=== PATIENT | female | born 1950 | race Caucasian/White ===

== ENCOUNTER → 2024-10-26 11:12 | Outpatient (REF) | payer MEDICARE, OTHER, SELFPAY | LOC: RAD 11:12 | PROVIDERS: ATTENDING PHYSICIAN Surgery Vascular Surgery; FAMILY PHYSICIAN Family Medicine | DX: I73.9 Peripheral vascular disease, unspecified (principal) | CPT/HCPCS: 93922; 93925 ==

== ENCOUNTER 2025-08-08 16:57 | Observation (INO) | payer MEDICARE, OTHER, SELFPAY ==
[2025-08-08] VITALS (7 sets, daily range): BP systolic 109–157; BP diastolic 56–98; BMI 26.1; BMI 28.8
[2025-08-08 13:27] LABS: Hematocrit 42.2 % (37.0-47.0); Hemoglobin 13.5 g/dL (12.0-16.0); Mean Corp Hgb Conc. 32.0 g/dL (33.0-37.0); Mean Corpuscular Volume 93.0 fL (81.0-99.0); Nucleated Red Blood Cells % 0 %; Platelet Count 236 10^3/uL (130-400); Red Cell Dist. Width 12.4 % (11.5-14.5)
[2025-08-08 13:44] LABS: ALT (SGPT) 24 U/L (0-35); AST (SGOT) 28 U/L (14-36); Albumin 4.6 g/dl (3.5-5.0); Alkaline Phosphatase 85 U/L (38-126); Blood Urea Nitrogen 26 mg/dl (7-17); Calcium 9.8 mg/dl (8.4-10.2); Carbon Dioxide 28 mmol/L (22-30); Chloride 103 mmol/L (98-107); Estimated Creatinine Clearance 43 ml/min; Glucose 196 mg/dl (70-99); Potassium 4.8 mmol/L (3.5-5.1); Sodium 138 mmol/L (135-145); Total Protein 7.5 g/dl (6.3-8.2); eGFR 58.39
[2025-08-08 13:54] LABS: Troponin I 0.017 ng/ml
--- NOTE | 2025-08-08 15:12 | ED.GENMED ---
History of Present Illness
General
Chief Complaint: Breathing Problem
Time Seen by Provider: 08/08/25 13:17
Nursing documentation reviewed up to this point in time: agreed with
History of Present Illness
History of Present Illness:
74-year-old female presents to the ER for evaluation of dyspnea on exertion which has been present and worsening over the previous 10 days. She denies orthopnea or paroxysmal nocturnal dyspnea. No peripheral edema. No fevers or chills. She has
no prior personal history of ACS nor has ever been seen by a sumo wrestler. She saw her PCP who has arranged for outpatient stress test tomorrow and echo to be done later this week. She has been eating and drinking without difficulty. No syncope
or trauma. She denies any change in urine output. Given progression of symptoms, patient did not feel comfortable waiting for further outpatient workup prompting visit to the ER today. No recent travel. No prior personal history of venous
thromboembolism
Past History
Past History
ED Past Medical History: Hypercholesterolemia and NIDDM
ED Past Surgical History: None
Social History
Tobacco: Non-smoker
Phy Exam
Physical Exam
Physical Exam:
Patient is awake, alert, appears in no acute distress, head is NCAT, PERRL, EOMI mucous membranes moist, conjunctiva pink, heart regular rate and rhythm without murmurs or ectopy, lungs are clear to auscultation without wheezes rales or rhonchi, no
JVD, abdomen is soft and nontender on palpation, extremities without edema, GCS is 15
Scores
Heart Failure Risk
Heart Failure Risk Score: Not Applicable
Course
Orders/Labs/Results
Orders:
Orders
08/08/25 13:01
Electrocardiogram (*1) Urgent
Reason for Study: Other
Other Reason for Exam: Respiratory Distress
08/08/25 13:10
Complete Blood Count/With Diff Urgent
Comprehensive Metabolic Panel Urgent
NT-proBNP Urgent
Troponin I Urgent
08/08/25 13:31
CR Chest - 2 Views Urgent
Comment:
Reason For Exam: dyspnea
08/08/25 15:15
Aspirin 325 mg PO NOW STA
Abnormal Lab Results
08/08/25
13:10
MCHC 32.0 L g/dL
(33.0-37.0)
BUN 26 H mg/dl
(7-17)
Glucose 196 H mg/dl
(70-99)
08/08/25 13:10
08/08/25 13:10
Very reassuring CBC. Kidney function preserved. Troponin just above normal. BNP within normal limits, no prior for compare
Vital Signs
Initial and Last Documented VS:
Initial Vital Signs
Temp Pulse Resp BP Pulse Ox
97.8 F 93 20 129/65 98
08/08/25 12:56 08/08/25 12:56 08/08/25 12:56 08/08/25 12:56 08/08/25 12:56
Last Documented Vital Signs
Temp Pulse Resp BP Pulse Ox
97.8 F 78 22 119/98 98
08/08/25 12:56 08/08/25 15:19 08/08/25 15:19 08/08/25 15:18 08/08/25 15:13
MDM/Problems Addressed
Differential Diagnosis Includes:
Differential diagnosis to consider but not limited to ACS with dyspnea as an anginal equivalent, CHF, pneumonia, cor pulmonale along with other etiologies considered
Chronic conditions affecting care:
Advanced age, type 2 diabetes, hyperlipidemia
*Radiology
Radiology exam reviewed: radiology read reviewed (No acute process, interstitial fibrosis, no lobar pneumonia seen)
*Pulse Oximetry
SaO2: 98
Oxygen Mode of Delivery: Room air
Patient hypoxic: no
*EKG
Interpreted by ED Provider?: Yes (I independently viewed and interpreted twelve-lead EKG showing sinus rhythm with first-degree AV block, rate 85, rightward axis, no ST elevation, this is a abnormal tracing without evidence for acute ischemia, no
prior for comparison)
*[employer] Interpretation
Rate: normal (I independently viewed and interpreted rhythm strip showing sinus rhythm with first-degree AV block)
*Critical Care Note
Total Time (30-74mins, 75-104mins- exclusive of procedures): Not Applicable
Update Note
Update Note:
Patient resting in bed, no acute distress while resting on the stretcher. I reviewed all test results with the patient and present at bedside. I discussed with him concern for dyspnea as an anginal equivalent and benefit for overnight
observation and further assessment of same. They agree with plan. I reviewed full patient presentation with the hospitalist who accepts patient for admission. Aspirin given
ED Attending Note
-
Portions of this chart may have been created with voice recognition software.� Occasional wrong word or��sound alike� substitutions may have occurred due to the inherent limitations of voice recognition software.
Discharge Plan
Departure
Patient Disposition: Admit
Date of Disposition: 08/08/25
Time of Disposition: 15:32
Presentation/result/management discussed w/ accepting MD/DO: Hospitalist
Discharge Problem:
DEL RIO (dyspnea on exertion)
Prescriptions:
No Action
atorvastatin [Lipitor] 40 mg Tablet
40 mg PO DAILY
Referrals:
Roberto Bee MD [Family Provider, Family Practice]
Interventions
Interventions:
*Risk Screen - Suicide Last Done: 08/08/25 12:56
*General Assessment Last Done: 08/08/25 13:26
*Neglect/Abuse Screening Last Done: 08/08/25 13:22
*ED- Fall Risk Assessment Last Done: 08/08/25 13:26
*ED COVID-19 Vaccine History Last Done: 08/08/25 13:26
*ED Influenza Vaccine History Last Done: 08/08/25 13:26
ED- Cardiac Assessment Last Done: 08/08/25 13:22
ED- Pulmonary Assessment Last Done: 08/08/25 13:22
Discharge Date and Time
Print Language: IRISH
--- NOTE | 2025-08-08 15:36 | HPS.HSE ---
Addendum entered and electronically signed by Emigdio Mcadams MD 08/08/25 20:25:
CT chest shows numerous bilateral small pulmonary nodule suggestive of metastatic disease. Check routine CT scan abdomen pelvis with IV contrast tomorrow. Oncology consulted.
Addendum entered and electronically signed by Emigdio Mcadams MD 08/08/25 16:45:
This is an addendum to the H&P written by Tanna Brewer on 08/08/2025. �Patient seen and examined independently with STATION INSTALLER AND REPAIRER.
74-year-old female past medical history of hypertension, hyperlipidemia, anxiety, diabetes, presenting with shortness of breath with minimal exertion dry cough for 10 days. �No fevers or chills. �No swelling of the legs or weight gain.
She saw her primary care physician who started her on aspirin and ordered echocardiogram and stress test which is supposed to occur tomorrow morning.
Vitals normal. �Labs unremarkable.
Troponin 0.017. �Cardiac BNP 159. �EKG shows sinus rhythm with first-degree AV block.
Chest x-ray shows fine reticular nodular opacity bilaterally which may relate to interstitial pneumonitis, atypical infection or interstitial fibrosis.
Patient with new onset dyspnea/dry cough likely secondary to interstitial pneumonitis versus atypical infection versus interstitial fibrosis. �Check CT chest with IV contrast and may potentially require antibiotics and/or steroids. �Check COVID.
Original Note:
Family Physician
-
Family Physician: Roberto Bee
Chief Complaint
-
cough and sob
History of Present Illness
74-year-old female presents to the ER for evaluation of dyspnea on exertion which has been present and worsening over the previous 10 days. patient also complained of non productive cough. she is drooling for past 10 days. She denies orthopnea or
paroxysmal nocturnal dyspnea. No peripheral edema. No fevers or chills. she stated sob improves with rest. Denied fever, chills, headache, dizzy or syncope. Patient denies abdominal pain, nausea, vomiting. Patient denies dysuria hematuria. She
lost 2 to 4 pounds in 1 week
She saw her PCP who has arranged for outpatient stress test tomorrow and echo to be done later this week.
Medical History
Past Medical History
Past Medical History: Reports Other
Additional Past Medical History:
Peripheral artery disease, NIDDM, hypertension, hyperlipidemia, MGUS
Past Surgical History: Reports None
Social History
Tobacco: Non-smoker
Alcohol: None
Drug: None
Personal:
Living: With Family
Family History
Family History: Not pertinent
Allergies / Home Medications
Allergies reflects when Allergies were last updated in [facility].
Home Medications with original date entered in [facility]
Allergy/Medication List:
Allergies
Allergy/AdvReac Type Severity Reaction Status Date / Time
No Known Allergies Allergy Verified 08/08/25 12:56
Home Medications
atorvastatin 40 mg tablet (Lipitor) 40 mg PO DAILY High Cholesterol 08/08/25
cholecalciferol (vitamin D3) 25 mcg (1,000 unit) tablet (Vitamin D3) 25 mcg PO DAILY Supplement 08/08/25
empagliflozin 25 mg tablet (Jardiance) 25 mg PO DAILY 08/08/25
fluoxetine 40 mg capsule 40 mg PO DAILY Mental Health/Anxiety 08/08/25
glipizide 10 mg tablet 10 mg PO DAILY Diabetes 08/08/25
lisinopril 40 mg tablet 40 mg PO DAILY Blood Pressure 08/08/25
Review of Systems
-
Constitutional: Reports No Symptoms
EENT: Reports No Symptoms
Respiratory: Reports Cough and Trouble Breathing
Cardiac: Reports No Symptoms
Abdomen/GI: Reports No Symptoms
: Reports No Symptoms
Musculoskeletal: Reports No Symptoms
Skin: Reports No Symptoms
Neurological: Reports No Symptoms
Endocrine: Reports No Symptoms
Hematologic/Lymphatic: Reports No Symptoms
Psych: Reports No Symptoms
Physical Exam
Vital Signs
Vital Signs
Temp Pulse Resp BP Pulse Ox
97.8 F 78 22 119/98 98
08/08/25 12:56 08/08/25 15:19 08/08/25 15:19 08/08/25 15:18 08/08/25 15:13
Physical Exam
General: Well Developed, Well Nourished and No Apparent Distress
HEENT: NormoCephalic, Moist mucous membranes and Atraumatic
Respiratory: Clear
Cardiac: S1/S2 and Regular Rhythm; No Murmur or Rub
GI: Soft, Non Tender, Non Distended and Normal Bowel Sounds; No Organomegaly
Rectal: Deferred by Provider
Musculoskeletal: No Clubbing, No Cyanosis and No Edema
Skin: No Rash
Neuro: AO x 3 and Nonfocal/grossly intact
Psych: Calm
Laboratory Results
-
08/08/25 13:10
08/08/25 13:10
Laboratory Results
Total Bilirubin 0.4 mg/dl (0.2-1.3) 08/08/25 13:10
AST 28 U/L (14-36) 08/08/25 13:10
ALT 24 U/L (0-35) 08/08/25 13:10
Alkaline Phosphatase 85 U/L (38-126) 08/08/25 13:10
Troponin I 0.017 ng/ml 08/08/25 13:10
Data Reviewed
-
Diagnostic Radiology: Report Reviewed by me
Lab Data: Labs Reviewed by me
Impression/Plan
-
#DEL RIO unclear cause
-trop 0.017
-chest x ray with Fine reticular nodular opacity is seen bilaterally, which may be related to interstitial pneumonitis, atypical infection, or interstitial fibrosis.
2. No evidence of lobar pneumonia or pleural effusion.
-EKG with Sinus Rhythm with 1se degree AV block
-will obtain CT of chest
-oxygenating very well on RA
# Type 2 diabetes
-jardiance and glipizide continued
- Sliding scale
- CHO diet
# Anxiety
- Paroxetine continued
# Essential hypertension
# Hyperlipidemia
- Lisinopril and statin continued
#DVT prophylaxis
- Lovenox
# CODE STATUS
- Full code
[2025-08-08] MEDS: ASPIRIN 325 MG PO (16:33)
[2025-08-08 17:03] LABS: COVID-19 Antigen Negative (Negative)
--- NOTE | 2025-08-08 18:46 | PTCARENOTE ---
pt admitted to 319-2 end of shift, spouse at bedside. AOx3 anxious. MS heart sounds regular, LCTA b/l on RA, denies SOB or CP. abd round nt +BS x4. cont b&B x2 assist. weak PP no edema b/l
[2025-08-08] MEDS: LOVENOX 40 MG SC (19:48)
--- NOTE | 2025-08-08 20:31 | W.PN.UPDATE ---
Update Note
Progress Note Update
CT with Numerous bilateral small pulmonary nodules suggestive of metastatic disease. Clinical and laboratory correlation recommended. Inflammation/infection unlikely.If the patient has emphysema, patient should be assessed for an annual low dose
lung cancer CT program, as pulmonary emphysema is an independent risk factor for lung cance
will obtain CT abdomen pelvis
oncology consulted.
[2025-08-08 21:25] LABS: Glucose - Point of Care 154 mg/dl (70-99)
[2025-08-08] MEDS: MELATONIN 5 MG PO (22:10)
[2025-08-09 07:17] VITALS: BP 128/59
[2025-08-09 07:50] LABS: Glucose - Point of Care 124 mg/dl (70-99)
[2025-08-09] MEDS: ZESTRIL 40 MG PO (08:03)
[2025-08-09] MEDS: FARXIGA 10 MG PO (08:04)
[2025-08-09] MEDS: GLUCOTROL 10 MG PO (08:05)
[2025-08-09] MEDS: VITAMIN D3 (cholecalciferol) 25 MCG PO (08:06)
[2025-08-09] MEDS: LIPITOR 40 MG PO (08:06)
[2025-08-09] MEDS: PROZAC 40 MG PO (08:07)
--- NOTE | 2025-08-09 10:25 | CON.ONC ---
Consultation
-
Date Consultation Requested: 08/08/25
Date Consultation Performed: 08/09/25
Requesting Provider: YUDI Pfeiffer
Performing Provider: Trini Gonsales MD
Reason for Consultation: lung nodules
Impression
Impression
dyspnea on exertion
Numerous bilateral small pulmonary nodules on CT chest
Plan
Plan
CT images reviewed personally - very small lung nodules alone are unlikely to explain her dyspnea
CT A/P has been ordered - if unremarkable, she needs pulmonary evaluation re: symptoms and CT findings
No further oncologic w/u at this time
Can f/u with me as outpatient if malignancy is identified
Patient History
History of Present Illness
This is a 74 yo F who presented to the ER yesterday with 10day h/o DEL RIO. Her PMD had arranged outpatient echo, not yet done. No cough, fever, sputum production, viral symptoms, chest pain, nausea, vomiting, diarrhea, rash, sore throat. She notes
balance issues related to diabetic neuropathy.
CXR was noted for reticular nodular opacity is seen bilaterally. CT Chest showed numerous bilateral small pulmonary nodules suggestive of metastatic disease. Clinical and laboratory correlation recommended. Inflammation/infection unlikely.
Not needing O2, she wants to go home.
She's a never smoker, though had 2nd hand smoke exposure in childhood - mom of lung cancer. No recent travel, no sick contacts, no birds as pets, no wood stove.
She's due for colonoscopy, recently had mammo.
PMD is [facility].
Past-Medical/Surgical History
PMH/PSH - as above. No surgeries. HTN, HLD
SH - non smoker,
FH - sister w/ colon cancer, mother had lung cancer
Patient Medication
�Medication �Instructions �Recorded �Confirmed �Last Taken �Type
atorvastatin 40 mg tablet (Lipitor) 40 mg PO DAILY High Cholesterol 08/08/25 08/08/25 08/08/25 History
cholecalciferol (vitamin D3) 25 25 mcg PO DAILY Supplement 08/08/25 08/08/25 08/08/25 History
mcg (1,000 unit) tablet (Vitamin
D3)
empagliflozin 25 mg tablet 25 mg PO DAILY 08/08/25 08/08/25 08/08/25 History
(Jardiance)
fluoxetine 40 mg capsule 40 mg PO DAILY Mental 08/08/25 08/08/25 08/08/25 History
Health/Anxiety
glipizide 10 mg tablet 10 mg PO DAILY Diabetes 08/08/25 08/08/25 08/08/25 History
lisinopril 40 mg tablet 40 mg PO DAILY Blood Pressure 08/08/25 08/08/25 08/08/25 History
Active Medications
Generic Name Dose Route Start Last Admin
Trade Name Freq PRN Reason Stop Dose Admin
Acetaminophen 650 mg 08/08/25 18:35
Acetaminophen 325 Mg Tablet PO 09/05/25 18:34
Q4HPRN PRN
mild pain/ATKINS/temp> 100.4F
Atorvastatin Calcium 40 mg 08/09/25 08:00 08/09/25 08:06
Atorvastatin (Lipitor) 40 Mg Tablet PO 09/06/25 07:59 40 mg
DAILY ARTHUR Administration
Bisacodyl 10 mg 08/08/25 18:35
Bisacodyl 10 Mg Rectal Suppository RECTAL 09/05/25 18:34
[id number] PRN
constipation
Cholecalciferol 25 mcg 08/09/25 08:00 08/09/25 08:06
Cholecalciferol (Vitamin D3) 25 Mcg Tablet (1,000 Units) PO 09/06/25 07:59 25 mcg
DAILY ARTHUR Administration
Dapagliflozin 10 mg 08/09/25 08:00 08/09/25 08:04
Dapagliflozin (Farxiga) 10 Mg Tablet PO 09/06/25 07:59 10 mg
DAILY ARTHUR Administration
Dextrose 12.5 grams 08/08/25 18:35
Dextrose 50% (0.5 Grams/Ml) 50 Ml Syringe IV 09/05/25 18:34
[id number] PRN
hypoglycemia
Protocol
Enoxaparin Sodium 40 mg 08/08/25 18:35 08/08/25 19:48
Enoxaparin Sodium 40 Mg/0.4 Ml Syringe SC 09/05/25 18:34 40 mg
QPM ARTHUR Administration
Fluoxetine HCl 40 mg 08/09/25 08:00 08/09/25 08:07
Fluoxetine 20 Mg Capsule PO 09/06/25 07:59 40 mg
DAILY ARTHUR Administration
Glipizide 10 mg 08/09/25 08:00 08/09/25 08:05
Glipizide 10 Mg Regular Release Tablet PO 09/06/25 07:59 10 mg
DAILY ARTHUR Administration
Glucagon 1 mg 08/08/25 18:35
Glucagon 1 Mg Vial IM 09/05/25 18:34
PRN PRN
hypoglycemia
Protocol
Insulin Aspart 0 units 08/08/25 18:35 08/09/25 08:02
Insulin Aspart Low Resistance 300 Units/3 Ml Pen.Injctr SC 09/05/25 18:34 Not Given
AC ARTHUR
Protocol
Iohexol 0 ml 08/09/25 10:30
Iohexol (240 Mg/Ml) 50 Ml Cat Scan PO 08/09/25 10:31
ONCE ONE
Protocol
Lisinopril 40 mg 08/09/25 08:00 08/09/25 08:03
Lisinopril 20 Mg Tablet PO 09/06/25 07:59 40 mg
DAILY ARTUHR Administration
Polyethylene Glycol 17 grams 08/08/25 18:35
Polyethylene Glycol Powder 17 Grams Packet PO 09/05/25 18:34
DAILYPRN PRN
constipation
Senna/Docusate Sodium 1 tablet 08/08/25 18:35
Docusate W/Senna (Nathalie-Colace) Tablet PO 09/05/25 18:34
BIDPRN PRN
constipation
Sodium Chloride 0 flush 08/08/25 19:00
Sodium Chloride 0.9% (Flush) Syringe IV 09/05/25 18:59
PER PROTOCOL ARTHUR
Review of Systems
-
All Other Systems: Not reviewed unless documented
Physical Exam
-
General: Well Developed, Well Nourished and No Apparent Distress
HEENT: Moist Mucous Membranes; Negative Jaundice
Cardiology: Normal Sinus Rhythm
Pulmonary: Other (scattered faint rales)
GI: Soft; Negative Distended or Tense
Musculoskeletal: No Clubbing, No Cyanosis and No Edema
Neurology: Non Focal, No Lateralizing Symptoms and No Word Finding Difficulty
Skin: Warm and Dry
Hematologic / Lymphatic: No Lymphadenopathy
Psych: Calm and Intact Judgement/Insight
Labs
Lab Results
WBC 7.6 10^3/uL (4.8-10.8) 08/08/25 13:10
RBC 4.54 10^6/uL (4.20-5.40) 08/08/25 13:10
Hgb 13.5 g/dL (12.0-16.0) 08/08/25 13:10
Hct 42.2 % (37.0-47.0) 08/08/25 13:10
MCV 93.0 fL (81.0-99.0) 08/08/25 13:10
MCH 29.7 pg (27.0-31.0) 08/08/25 13:10
MCHC 32.0 g/dL (33.0-37.0) L 08/08/25 13:10
RDW 12.4 % (11.5-14.5) 08/08/25 13:10
Plt Count 236 10^3/uL (130-400) 08/08/25 13:10
MPV 9.5 fL (7.4-10.4) 08/08/25 13:10
Abs Immat Gran (auto) 0.0 10^3/uL (0-0.05) 08/08/25 13:10
Absolute Neuts (auto) 5.0 10^3/uL (1.4-6.5) 08/08/25 13:10
Absolute Lymphs (auto) 1.8 10^3/uL (1.2-3.4) 08/08/25 13:10
Absolute Monos (auto) 0.6 10^3/uL (0.1-0.6) 08/08/25 13:10
Absolute Eos (auto) 0.1 10^3/uL (0-0.7) 08/08/25 13:10
Absolute Basos (auto) 0.0 10^3/uL (0-0.2) 08/08/25 13:10
Immature Gran % 0.3 % (0-0.5) 08/08/25 13:10
Neutrophils % 66.5 % (42.2-75.2) 08/08/25 13:10
Lymphocytes % 23.6 % (20.5-51.1) 08/08/25 13:10
Monocytes % 8.2 % (1.7-9.3) 08/08/25 13:10
Eosinophils % 0.9 % (0-6) 08/08/25 13:10
Basophils % 0.5 % (0-2) 08/08/25 13:10
Creatinine 1.0 mg/dL (0.6-1.0) 08/08/25 13:10
Vital Signs
Vital Signs
Temp Pulse Resp BP Pulse Ox
97.4 F 73 17 128/59 99
08/09/25 07:17 08/09/25 07:17 08/09/25 07:17 08/09/25 07:17 08/09/25 07:17
[2025-08-09] MEDS: OMNIPAQUE 50 ML PO (10:28)
[2025-08-09 10:32] LABS: Glycohemoglobin (HgbA1c) 7.5 % (4.0-5.9)
--- NOTE | 2025-08-09 11:47 | W.PN.HOSP.TC ---
Today's Communication/Plan
-
CT A/P
ECHO
Assessment / Plan
Assessment / Plan
74 y/o female with SOB
CT Chest- Numerous bilateral small pulmonary nodules suggestive of metastatic disease. Clinical and laboratory correlation recommended. Inflammation/infection unlikely.
EKG- SR with 1st degree AVB
CVS: S1-S2 normal
Chest: CTA B/L
Abdomen: Soft, NT , Bowel sounds present
Extremities: No edema
# SOB
Bilateral pulmonary nodules
Agree with CT of the abdomen and pelvis
Oncology eval noted
Check ECHO
# Hypertension-continue lisinopril
# Diabetes-hemoglobin A1c-7.5
Continue glipizide, Jardiance, Accu-Cheks and sliding scale coverage
# Hyperlipidemia-continue statin
# Depression-continue fluoxetine
# History of MGUS
# DVT prophylaxis-Lovenox
# Full code
D/W RN
D/W at bed side
Patient states that she is leaving no marijuana today. Discussed that she does not have a diagnosis and were not sure if we get a diagnosis right away before she leaves. She is also aware that outpatient workup will take more time. Also encourage
up to walk around the unit to see if she is getting short of breath and symptomatic.
Part of this note was created using voice recognition system. Occasional wrong word or��sound alike� substitutions may have inadvertently occurred due to the inherent limitations of voice recognition software. If noted kindly bring it to my
attention for correction.
Anticipated Discharge: 24 - 48 hours
Subjective/Interval History
-
Date of Service: August 09, 2025
Objective Data
-
Vital Signs:
Vital Signs
Temp Pulse Resp BP Pulse Ox
97.4 F 73 17 128/59 99
08/09/25 07:17 08/09/25 07:17 08/09/25 07:17 08/09/25 07:17 08/09/25 07:17
[2025-08-09 11:49] LABS: Glucose - Point of Care 92 mg/dl (70-99)
--- NOTE | 2025-08-09 13:20 | CM ---
Patient seen at bedside with
STALLWORTH form explained & signed. In chart
IA completed
Await CT scan
Lives in multi story home with , 1 ALIA, has 2 stair glides to 2nd floor, powder room 1st floor
PLOF: independent uses cane outside home, walker for longer distances
DME: Cane, walker, CPAP (reported does not use)
Denies VN/rehab
requested information on private caregivers for future, given resources
PCP: Roberto Bee
Pharmacy: [address]
PLAN: Home, no needs anticipated
to transport
--- NOTE | 2025-08-09 13:45 | PTCARENOTE ---
pt and spouse both anxious, pressing call hammond frequently asking to leave. Reminded CT results are pending. Pt states she is leaving tonight, informed without D/C order AMA would be required- pt is accepting of AMA and is adamant she is leaving
tonight
[2025-08-09 15:19] VITALS: BP 131/78
--- NOTE | 2025-08-09 16:40 | PTCARENOTE ---
pt returned from echo, got off stretcher and immediately asked for discharge papers. This nurse went to d/w attending, pt dressed and in hallway, spouse pressing call hammond, asking what to leave. reviewed AMA, pt agreeable to AMA communicating with
attending for possible d/c
[2025-08-09 16:50] LABS: Glucose - Point of Care 165 mg/dl (70-99)
[2025-08-09 18:00] VITALS: O2SAT 95; O2SAT 96
--- NOTE | 2025-08-09 19:25 | W.PN.UPDATE ---
Update Note
Progress Note Update
Notified by nursing earlier today that patient wants to leave AGAINST MEDICAL ADVICE as she does not want to stay any longer in the hospital. She had also indicated this to me during my visit this morning but I was able to convince her to get a CAT
scan. Patient had a home oxygen evaluation and her ambulatory pulse ox was 96% with exertion. She states that she feels well enough to get further workup done as outpatient. Discussed with the patient about CAT scan findings and the fact that she
needs to follow-up with the merchandise flow team member. We can get that done here, she might need additional testing such as a bronchoscopy or other blood testing based on what pulmonology evaluation. I discussed that outpatient appointment may take several
weeks and also further testing may also take several weeks and her disease could progress in the meantime. Patient stated that even if she had to re- live The last 24 hours, she would still do not want to be in the hospital and would rather be
home. She thinks that she will come back if she were to feel bad again.
She is aware that this would require an ER wait and admission through the ER.
I have printed out reports of CAT scan, echo for her to take with her.
I will also do a trial course of antibiotics and I did mention to the patient as well as that there is no guarantee that this will work.
Patient was dressed and determined to leave AGAINST MEDICAL ADVICE. At this point I will do a patient requested for discharge with papers and Meds.
She is clinically stable at this point and prefers further work up as outpatient.
Total time spent for discharge over 30 min
--- NOTE | 2025-08-09 19:32 | W.DS.TRANS ---
Addendum entered and electronically signed by Sunny Monreal MD 08/10/25 08:37:
Dictation- [id number]
Original Note:
DC Summary - Special Duty Nurse
-
Discharge Instructions:
Discharge Diagnosis/Procedures Bilateral pulmonary nodules
Hypertension
Diabetes
Hyperlipidemia
Depression
History of MGUS
Diet As tolerated
Activity As tolerated,No strenuous activity
Driving Restrictions As prior to admission
Instructions:
Stand-Alone Forms:
Changes to Home Medications: Yes
Discharge Medications:
DC Medications w/original date entered in [facility]
atorvastatin 40 mg tablet (Lipitor) 40 mg PO DAILY High Cholesterol 08/08/25
cholecalciferol (vitamin D3) 25 mcg (1,000 unit) tablet (Vitamin D3) 25 mcg PO DAILY Supplement 08/08/25
empagliflozin 25 mg tablet (Jardiance) 25 mg PO DAILY Diabetes 08/08/25
fluoxetine 40 mg capsule 40 mg PO DAILY depression/anxiety 08/08/25
glipizide 10 mg tablet 10 mg PO DAILY Diabetes 08/08/25
lisinopril 40 mg tablet 40 mg PO DAILY Blood Pressure 08/08/25
doxycycline hyclate 100 mg capsule 100 mg PO Q12 Infection #14 caps 08/09/25
Home Medication Changes
Doxy new
Pending Results: No
[2025-08-09 20:06] VITALS: BP 99/51
--- NOTE | 2025-08-09 20:06 | PTCARENOTE ---
Patient being discharged to home. Packet discussed with patient and her . Prescription for abx sent to pharmacy. Vitals obtained prior to leaving. IV was removed. All belongings sent with patient. Transported via wheelchair and accompanied by
.
== END 2025-08-09 20:09 | disposition home or self-care (01) ==
LOC: 3 WEST ACU 16:57
PROVIDERS: Emergency Medicine; Registered Nurse; ADMITTING PHYSICIAN Hospitalist; ATTENDING PHYSICIAN Hospitalist; EMERGENCY PHYSICIAN Emergency Medicine; FAMILY PHYSICIAN Family Medicine; OTHER PHYSICIAN Internal Medicine Hematology & Oncology
DX: R91.8 Other nonspecific abnormal finding of lung field (principal); R06.02 Shortness of breath; E78.00 Pure hypercholesterolemia, unspecified; E11.40 Type 2 diabetes mellitus with diabetic neuropathy, unspecified; E11.51 Type 2 diabetes mellitus with diabetic peripheral angiopathy without gangrene; R06.03 Acute respiratory distress; I44.0 Atrioventricular block, first degree; R06.09 Other forms of dyspnea; I25.10 Atherosclerotic heart disease of native coronary artery without angina pectoris; I08.0 Rheumatic disorders of both mitral and aortic valves; I70.0 Atherosclerosis of aorta; F32.A Depression, unspecified; I10 Essential (primary) hypertension; F41.9 Anxiety disorder, unspecified; R05.9 Cough, unspecified; Z79.899 Other long term (current) drug therapy; Z79.84 Long term (current) use of oral hypoglycemic drugs; Z77.22 Contact with and (suspected) exposure to environmental tobacco smoke (acute) (chronic); Z80.1 Family history of malignant neoplasm of trachea, bronchus and lung; Z80.0 Family history of malignant neoplasm of digestive organs; Z11.52 Encounter for screening for COVID-19
CPT/HCPCS: 71046; 71260; 74177; 80053; 82962; 83036; 83880; 84484; 85025; 87811; 93005; 93306; 93356; 99285; G0378; Q9967

== ENCOUNTER 2025-08-14 20:39 | Observation (INO) | payer MEDICARE, OTHER, SELFPAY ==
[2025-08-14 14:33] VITALS: BP 128/59
--- NOTE | 2025-08-14 15:25 | ED.GENMED ---
History of Present Illness
<Dwaine Forbes PA-C - Last Filed: 08/14/25 17:57>
General
Chief Complaint: Breathing Problem
Source: patient
Exam Limitations: none
Time Seen by Provider: 08/14/25 15:00
History of Present Illness
History of Present Illness:
74-year-old female presents with worsening shortness of breath. She was here in the hospital couple days ago and left. She was found to have multiple pulmonary nodules that were either infectious in nature or metastatic in nature. This was
followed by CT of her abdomen which confirmed those findings. She was due to see pulmonology but side to leave prior to receiving full course of treatment and diagnostic workup. She states over the weekend despite being on doxycycline her symptoms
have worsened. She notes fatigue. She notes a couple pound weight loss. She notes decreased appetite.
Past History
<PIPPA Su Last Filed: 08/14/25 17:57>
Past History
ED Past Medical History: Hypercholesterolemia and NIDDM
ED Past Surgical History: None
Social History
Tobacco: Non-smoker
Phy Exam
<PIPPA Su Last Filed: 08/14/25 17:57>
Physical Exam
Physical Exam:
General: Well developed female
HEENT: Normal cephalic atraumatic
Heart: Regular rate and rhythm lungs: Subtle wheeze on inspiration
Abdomen is soft nontender
Extremities: No cyanosis or edema
Scores
<PIPPA Su Last Filed: 08/14/25 17:57>
Heart Failure Risk
Heart Failure Risk Score: Not Applicable
Course
<PIPPA Su Last Filed: 08/14/25 17:57>
Orders/Labs/Results
Orders:
Orders
08/14/25 14:32
Electrocardiogram (*1) Urgent
Reason for Study: Shortness of Breath
EKG- Treatment ONCE
08/14/25 15:23
CR Chest - 2 Views Urgent
Comment:
Reason For Exam: sob
08/14/25 15:28
Complete Blood Count/With Diff Urgent
Comprehensive Metabolic Panel Urgent
NT-proBNP Urgent
Troponin I Urgent
08/14/25 20:10
Admit/Transfer Patient As Directed
Co-Sign Provider:
Level of Care: Observation services
Assign to:: Medical/Surgical
Physician / Group: Philip Kahn
Diagnosis: exertional dyspnea
PRN Pain Medication Management As Directed
May give lesser potent ordered pain med per pt: Yes
preference::
Protocol:: Medication orders for pain may be administered in a
manner that supports deferring to patient preference
when the pt is:
- Requesting an ordered lesser potent pain medication.
Least to most potent pain medications are defined
as: acetaminophen < NSAID < tramadol < opioids
(morphine, oxycodone, hydromorphone).
- Requesting a lesser dose of the same medication IF
ORDERED.
- Requesting a less intrusive route of administration
if both routes are prescribed by the provider (PO <
IV).
08/14/25 20:12
Code Status As Directed
Resuscitation Status: Full Code
Abnormal Lab Results
08/14/25
15:28
Absolute Monos (auto) 0.8 H 10^3/uL
(0.1-0.6)
Monocytes % 10.7 H %
(1.7-9.3)
Sodium 134 L mmol/L
(135-145)
BUN 23 H mg/dl
(7-17)
Glucose 135 H mg/dl
(70-99)
08/14/25 15:28
08/14/25 15:28
Vital Signs
Initial and Last Documented VS:
Initial Vital Signs
Temp Pulse Resp BP Pulse Ox
98.5 F 88 16 128/59 98
08/14/25 14:33 08/14/25 14:33 08/14/25 14:33 08/14/25 14:33 08/14/25 14:33
Last Documented Vital Signs
Temp Pulse Resp BP Pulse Ox
98.6 F 77 19 145/67 97
08/14/25 15:38 08/14/25 19:32 08/14/25 19:32 08/14/25 18:50 08/14/25 19:35
<Marvin Ness MD - Last Filed: 08/14/25 21:05>
Orders/Labs/Results
Orders:
Orders
08/14/25 14:32
Electrocardiogram (*1) Urgent
Reason for Study: Shortness of Breath
EKG- Treatment ONCE
08/14/25 15:23
CR Chest - 2 Views Urgent
Comment:
Reason For Exam: sob
08/14/25 15:28
Complete Blood Count/With Diff Urgent
Comprehensive Metabolic Panel Urgent
NT-proBNP Urgent
Troponin I Urgent
08/14/25 20:10
Admit/Transfer Patient As Directed
Co-Sign Provider:
Level of Care: Observation services
Assign to:: Medical/Surgical
Physician / Group: Philip Kahn
Diagnosis: exertional dyspnea
PRN Pain Medication Management As Directed
May give lesser potent ordered pain med per pt: Yes
preference::
Protocol:: Medication orders for pain may be administered in a
manner that supports deferring to patient preference
when the pt is:
- Requesting an ordered lesser potent pain medication.
Least to most potent pain medications are defined
as: acetaminophen < NSAID < tramadol < opioids
(morphine, oxycodone, hydromorphone).
- Requesting a lesser dose of the same medication IF
ORDERED.
- Requesting a less intrusive route of administration
if both routes are prescribed by the provider (PO <
IV).
08/14/25 20:12
Code Status As Directed
Resuscitation Status: Full Code
Abnormal Lab Results
08/14/25
15:28
Absolute Monos (auto) 0.8 H 10^3/uL
(0.1-0.6)
Monocytes % 10.7 H %
(1.7-9.3)
Sodium 134 L mmol/L
(135-145)
BUN 23 H mg/dl
(7-17)
Glucose 135 H mg/dl
(70-99)
08/14/25 15:28
08/14/25 15:28
Vital Signs
Initial and Last Documented VS:
Initial Vital Signs
Temp Pulse Resp BP Pulse Ox
98.5 F 88 16 128/59 98
08/14/25 14:33 08/14/25 14:33 08/14/25 14:33 08/14/25 14:33 08/14/25 14:33
Last Documented Vital Signs
Temp Pulse Resp BP Pulse Ox
98.6 F 77 19 145/67 97
08/14/25 15:38 08/14/25 19:32 08/14/25 19:32 08/14/25 18:50 08/14/25 19:35
Magedlt;Dwaine Forbes PA-C - Last Filed: 08/14/25 17:57>
MDM/Problems Addressed
Differential Diagnosis Includes:
Patient here with more shortness of breath and fatigue. Recent hospital visit noted. I reviewed prior CT scans. Will chest x-ray today. EKG today shows sinus rhythm. BNP and troponin pending as well
<Dwaine Forbes PA-C - Last Filed: 08/14/25 17:57>
*Pulse Oximetry
SaO2: 98
Oxygen Mode of Delivery: Room air
Patient hypoxic: no
*Critical Care Note
Total Time (30-74mins, 75-104mins- exclusive of procedures): Not Applicable
<Dwaine Forbes PA-C - Last Filed: 08/14/25 17:57>
Update Note
Update Note:
Patient reevaluated. She ambulated and became short of breath with minimal ambulation. Chest x-ray personally visualized and without acute finding. Labs reviewed with no significant change. Given patient's symptomatic dyspnea and shortness of
breath we will decide to keep for further evaluation. Discussed with ED attending.
ED Attending Note
<Dwaine Forbes PA-C - Last Filed: 08/14/25 17:57>
-
Portions of this chart may have been created with voice recognition software.� Occasional wrong word or��sound alike� substitutions may have occurred due to the inherent limitations of voice recognition software.
<Marvin Ness MD - Last Filed: 08/14/25 21:05>
ED Attending Note
Patient seen and examined by attending physician: Yes
I performed the substantive portion of visit, reviewed & personally made and approve the management plan that is documented in note by myself or MELLY.: Yes
ED Attending Note:
I have seen and evaluated the patient with a [id number] encounter. I have spoken to the [MELLY] and involved in the medical history, the physical exam, medical decision making.
Evaluation and management service: agree unless noted differently below.
Results interpretation: agree unless noted differently below.
Patient is a 74-year-old female presenting to the emergency room with worsening shortness of breath. Per chart patient was admitted for the same signs and multiple pulmonary nodules. She ultimately left AMA. She is presenting back that symptoms
have worsened despite being on antibiotics. On my evaluation patient is resting comfortably. She does have intermittent wheezing though she is not in any respiratory distress. Differential consists of malignancy versus infection. Blood work
obtained which was unremarkable. Chest x-ray without any obvious infiltrate. Upon ambulation patient with significant shortness of breath. Patient unsafe to be discharged home given the degree of dyspnea. Discussed with hospitalist who excepted
patient to their service.
Discharge Plan
Departure
Patient Disposition: Admit
Date of Disposition: 08/14/25
Time of Disposition: 17:56
Presentation/result/management discussed w/ accepting MD/DO: Hospitalist
Patient with high blood pressure during this ER visit?: No
Discharge Problem:
DEL RIO (dyspnea on exertion)
Interventions
Interventions:
*Risk Screen - Suicide Last Done: 08/14/25 14:34
*General Assessment Last Done: 08/14/25 15:38
*Neglect/Abuse Screening Last Done: 08/14/25 14:34
*ED- Fall Risk Assessment Last Done: 08/14/25 15:38
*ED COVID-19 Vaccine History Last Done: 08/14/25 15:38
*ED Influenza Vaccine History Last Done: 08/14/25 15:38
ED- Cardiac Assessment Last Done: 08/14/25 19:35
ED- Pulmonary Assessment Last Done: 08/14/25 19:35
[2025-08-14 15:35] VITALS: BMI 25.1
[2025-08-14 15:38] VITALS: BP 136/81
[2025-08-14 15:47] LABS: Hematocrit 38.2 % (37.0-47.0); Hemoglobin 12.7 g/dL (12.0-16.0); Mean Corp Hgb Conc. 33.2 g/dL (33.0-37.0); Mean Corpuscular Volume 88.4 fL (81.0-99.0); Nucleated Red Blood Cells % 0 %; Platelet Count 226 10^3/uL (130-400); Red Cell Dist. Width 12.4 % (11.5-14.5)
[2025-08-14 15:59] LABS: ALT (SGPT) 24 U/L (0-35); AST (SGOT) 28 U/L (14-36); Albumin 4.1 g/dl (3.5-5.0); Alkaline Phosphatase 77 U/L (38-126); Blood Urea Nitrogen 23 mg/dl (7-17); Calcium 9.7 mg/dl (8.4-10.2); Carbon Dioxide 26 mmol/L (22-30); Chloride 104 mmol/L (98-107); Estimated Creatinine Clearance 46 ml/min; Glucose 135 mg/dl (70-99); Potassium 4.3 mmol/L (3.5-5.1); Sodium 134 mmol/L (135-145); Total Protein 7.2 g/dl (6.3-8.2); eGFR > 60.00
[2025-08-14 16:09] LABS: Troponin I 0.018 ng/ml
--- NOTE | 2025-08-14 18:46 | EDRN ---
this RN entered the pts room and found the pt sitting on the side of the bed with her on bicycle fitter, and Sp02 monitor on with BP cuff off, the pt is tearful and does not want to stay but expresses that she understands that she needs to
stay, at the bedside offering support, VS WNL, no c/o chest pain, no c/o SOB, awaiting for hospitalist to see the pt
[2025-08-14 18:50] VITALS: BP 145/67
--- NOTE | 2025-08-14 19:25 | HPS.HSE ---
Family Physician
-
Family Physician: Roberto Bee
Chief Complaint
-
shortness of breath
History of Present Illness
Patient is a 74-year-old female with past medical history significant for NIDDM, hypertension, hyperlipidemia, anxiety and peripheral artery disease who presented to [facility] ED for evaluation of worsening shortness of breath. [facility]. Patient with recent hospitalization 08/08/2025-08/10/[address] showed that, she has numerous medium sized, round, solid, noncalcified bilateral pulmonary nodules, suggestive of metastatic disease, inflammation or
infection unlikely but possible. Plan was to have patient workup done in patient but patient elected to leave AMA despite workup not completed. Since discharge patient has had increased exertional dyspnea and increased weakness. Spouse reports
dyspnea today was at rest when patient requested to go to hospital for evaluation via EMS. Patient reports she was able to schedule Pulmonary follow up for this Friday08/16/[address] Ricardo. Denies any fever, chills, cough, chest pain,
nausea, vomiting, constipation, diarrhea or urinary symptoms.
Medical History
Past Medical History
Past Medical History: Reports Other
Additional Past Medical History:
NIDDM
hypertension
hyperlipidemia
anxiety
peripheral artery disease
MGUS
Past Surgical History: Reports None
Social History
Tobacco: Non-smoker
Alcohol: None
Drug: None
Personal:
Living: With Family
Employment: Retired
Family History
Family History: Other (Mother: Lung cancer, CAD; Sister: colon cancer; Daughter: breast cancer )
Allergies / Home Medications
Allergies reflects when Allergies were last updated in [facility].
Home Medications with original date entered in [facility]
Allergy/Medication List:
Allergies
Allergy/AdvReac Type Severity Reaction Status Date / Time
No Known Allergies Allergy Verified 08/08/25 12:56
Home Medications
atorvastatin 40 mg tablet (Lipitor) 40 mg PO DAILY High Cholesterol 08/08/25
empagliflozin 25 mg tablet (Jardiance) 25 mg PO DAILY Diabetes 08/08/25
fluoxetine 40 mg capsule 40 mg PO DAILY depression/anxiety 08/08/25
glipizide 10 mg tablet 10 mg PO DAILY Diabetes 08/08/25
lisinopril 40 mg tablet 40 mg PO DAILY Blood Pressure 08/08/25
doxycycline hyclate 100 mg capsule 100 mg PO Q12 Infection #14 caps 08/09/25
cholecalciferol (vitamin D3) 50 mcg (2,000 unit) capsule (Vitamin D3) 50 mcg PO DAILY Supplement 08/14/25
Review of Systems
-
History Source: Patient and Family
Constitutional: Reports Weight Loss; Denies Fever or Chills
EENT: Denies Sore Throat
Respiratory: Reports Trouble Breathing (exertional dyspnea ); Denies Cough or Hemoptysis
Cardiac: Denies Chest Pain, Diaphoresis, Palpitations or Syncope
Abdomen/GI: Denies Abdominal Pain, Nausea, Vomiting or Diarrhea
: Denies Dysuria, Frequency or Urgency
Musculoskeletal: Denies Joint Pain
Skin: Denies Rash
Neurological: Reports Weakness; Denies Dizzy, Headache or Numbness
Endocrine: Denies Polyuria or Polydipsia
Physical Exam
Vital Signs
Vital Signs
Temp Pulse Resp BP Pulse Ox
98.6 F 74 15 145/67 99
08/14/25 15:38 08/14/25 18:50 08/14/25 18:50 08/14/25 18:50 08/14/25 18:50
Physical Exam
General: Well Developed, Well Nourished, No Apparent Distress, Comfortable and Conversant
HEENT: NormoCephalic, Moist mucous membranes, PERRLA, Nose Appears Normal and Ears Appear Normal
Respiratory: Clear, Non Labored Respirations and Decreased Breath Sounds (decreased throughout on right lung ); No Wheezes, Rales or Rhonchi
Cardiac: Regular Rhythm; No Murmur, Rub, Gallop or Peripheral Edema
GI: Soft, Non Tender, Non Distended and Normal Bowel Sounds
Musculoskeletal: No Clubbing, No Cyanosis and No Edema
Skin: Warm and IV/Catheter Site
Neuro: Awake, AO x 3, No Motor Deficits and Nonfocal/grossly intact
Psych: Calm and Intact Judgment/Insight
Laboratory Results
-
08/14/25 15:28
08/14/25 15:
Laboratory Results
Total Bilirubin 0.5 mg/dl (0.2-1.3) 08/14/25 15:
AST 28 U/L (14-36) 08/14/25 15:
ALT 24 U/L (0-35) 08/14/25 15:28
Alkaline Phosphatase 77 U/L (38-126) 08/14/25 15:
Troponin I 0.018 ng/ml 08/14/25 15:28
Data Reviewed
-
Diagnostic Radiology: Report Reviewed by me (CXR: No acute cardiopulmonary process. Scattered diffuse bilateral faint pulmonary nodules, as seen on recent CT examination.)
Medical Tests (Nuc Med, Echo, EKG etc): Report Reviewed by me (EKG: NORMAL SINUS RHYTHM RIGHT SUPERIOR AXIS DEVIATION)
Lab Data: Labs Reviewed by me
Impression/Plan
-
IMPRESSION/PLAN:
#worsening dyspnea
worsening shortness of breath, recent hospitalization 08/08/25/-08/10/25 and left AMA before workup completed, Chest CT showed that, she has numerous medium sized, round, solid, noncalcified bilateral pulmonary nodules,
suggestive of metastatic disease, inflammation or infection unlikely but possible.
labs unremarkable
EKG:NORMAL SINUS RHYTHM
RIGHT SUPERIOR AXIS DEVIATION
CXR: No acute cardiopulmonary process.
Scattered diffuse bilateral faint pulmonary nodules, as seen on recent CT examination.
- Admit to med/surg
- Consult Pulmonary
- check Procal
#NIDDM
last A1c 7.5 (08/08/2025)
- AccuCheck AC & HS
- SSI
- continue Jardiance and glipizide
#hypertension
- continue lisinopril
#hyperlipidemia
- continue atorvastatin
#anxiety
- continue fluoxetine
#peripheral artery disease
Code status: full code
DVT prophylaxis: Lovenox sq
--- NOTE | 2025-08-14 19:51 | W.PN.UPDATE ---
Update Note
Progress Note Update
This note serves as an addendum to the H&P by enterprise account executive Cornell Cavazos
HPI
74F Non smoker, DMT2, HTN, HLD seen at ER:
- [facility] EMS from home for worsening SOB for the past few weeks, worse today.
- dry cough.
- Recent admission and AMA ( 08/08/2025 - ) W/U for for SoB
08/08/25: CTC POS for multiple pulmonary nodules that were either infectious in nature or metastatic in nature Then followed by CT AP
- was due to see pulmonology but side to leave prior to receiving full course of treatment and diagnostic workup.
- over the weekend despite being on doxycycline her symptoms have worsened.
- fatigue. She notes a couple pound weight loss. She notes decreased appetite.
Relevant VS
Temp Pulse Resp BP Pulse Ox
98.6 F 77 19 145/67 97 on RA
08/14/25 15:38 08/14/25 19:32 08/14/25 19:32 08/14/25 18:50 08/14/25 19:35
PE
Gen: NAD, not orthopneic
HEENT: anicterics
Neck: supple
Lungs:symmetric AE
Cor: RRR S1 S2
Abdomen:�soft NT NG NRT
BROODMARE BARN GROOM: AAO3
MS: No edema
Psych: ? cognitive dysfunction
Relevant data
08/08/25 08/14/25
13:10 15:28
WBC 7.3
Hgb 13.5 12.7
Plt Count 236 226
08/14/25
15:28
Sodium 134 L
BUN 23 H
Creatinine 0.9
eGFR > 60.00
Troponin I 0.018
Iwh-C-Oenrvsswtrm Pept 126
08/09/25 CT AP w IV contrast
- �Numerous small pulmonary nodules within the visualized lower chest.
These nodules raise concern for metastatic disease. However, they could also represent diffuse bilateral infectious nodules. Inflammatory nodules would seem less likely.
- Coronary artery calcifications are noted. Please correlate with symptoms of and risk factors for coronary artery disease, with further workup as clinically appropriate.
- Subtle layer of increased density within the dependent portion of the gallbladder, which could represent a small layer of noncalcified stones, but could also represent subtle sludge or complex bile. - - no findings to suggest acute
cholecystitis.
- Vascular calcification with no aortic aneurysm.
- Bony degenerative changes as described. No CT evidence for bony metastatic disease.
08/08/25 CTC w IV contrast
- Numerous bilateral small pulmonary nodules suggestive of metastatic disease.
Clinical and laboratory correlation recommended. Inflammation/infection unlikely.
Last hospitalist admission and AMA: 08/08/2025 - 08/09/2025.
PDX : Numerous small pulmonary nodules concern for metastatic disease
ASSESSMENT & PLAN
Worsening Progressive Dyspnea with POx hi 90s on RA
Concern for metastatic lung dz in view of numerous bilateral small pulmonary nodules per CTC w IV contrast (10/08/24)
No evidence of acute HF, PNA or COPD
- Non smoker
- FHX Lung Ca, Breast CA, Colon CA
- No improvement with empiric PO Doxycycline since 08/08 till today - Rickie hold off further ABx for now
- check PCT to complete w/u - doubt it will elevated
- Pul consult for further tissue Dxs w/u Bronchoscopy +/_ PFTs
Cognitive dysfunction ? DDX: undiagnosed MCI or dementia
- poor insight and impaired judgement
- check B12, Folate , TS in case reversibility
- OT consult for short cognitive assessment
DMT2
- c/w MIX HOUSE OPERATOR Glipizide and Jardiance
- add ISS low
Essential HTN
- on MIX HOUSE OPERATOR Lisinopril
HLD
- on Atorvastatin
DVT Px: LMWH
Full code
OBS MS
[2025-08-14 21:57] LABS: Glucose - Point of Care 172 mg/dl (70-99)
[2025-08-14 22:00] VITALS: BP 136/69; BMI 25.1
[2025-08-14 23:00] VITALS: BP 121/56
[2025-08-15 00:08] LABS: Procalcitonin 0.77 ng/ml (0.0-0.25)
--- NOTE | 2025-08-15 02:45 | PTCARENOTE ---
Patient received from ED via stretcher. at bedside. Patient able to ambulate to bed with assistance. Patient denies any dyspnea at this time. Denies any pain. Patient anxious at times. Tearful when speaking to this RN about
daughter. Emotional support provided. Fall prevention reviewed with patient. Call hammond left with in reach. Will continue to monitor.
[2025-08-15 07:00] VITALS: BP 146/67
[2025-08-15 08:24] LABS: Glucose - Point of Care 139 mg/dl (70-99)
[2025-08-15] MEDS: FARXIGA 10 MG PO (08:40)
[2025-08-15] MEDS: VITAMIN D3 (cholecalciferol) 50 MCG PO (08:40)
[2025-08-15] MEDS: GLUCOTROL 10 MG PO (08:40)
[2025-08-15] MEDS: LIPITOR 40 MG PO (08:40)
[2025-08-15] MEDS: PROZAC 40 MG PO (08:40)
[2025-08-15] MEDS: ZESTRIL 40 MG PO (08:40)
--- NOTE | 2025-08-15 10:19 | CON.PUL ---
Addendum entered and electronically signed by Jennifer Newby DO 08/15/25 15:05:
Mild obstruction noted, could be adult onset asthma
Will start inhaler regiment
Still may not explain her level of complaints
Original Note:
Consultation
Consultation Request
Date/Time Consultation Requested: 08/15/25
Date/Time Consultation Performed: 08/15/25
Performing Provider: Keyonna
Reason for Consultation: SOB
Medical History
-
History of Present Illness:
Patient is a 74-year-old female with past medical history significant for NIDDM, hypertension, hyperlipidemia, anxiety and peripheral artery disease who presented to [facility] ED for evaluation of worsening shortness of breath. Patient and spouse at
bedside assisted with HPI. Patient with recent hospitalization 08/08/2025-08/10/[address] showed that, she has numerous medium sized, round, solid, noncalcified bilateral pulmonary nodules, suggestive of metastatic disease, inflammation or
infection unlikely but possible. She had signed out AMA prior to completed work up and presents again for admission on 08/14/25. states that she had stopped her medications for two days and went 'apoplectic' demanding him to call 911. She
is crying on my interview regarding staying inpatient this time for work up.
Past Medical History
Past Medical History: Other (see list below)
Social History
Tobacco: Non-smoker
Alcohol: None
Drug: None
Family History
Family History: Reviewed & Not Pertinent
Allergies / Home Medications
Allergies
Allergy/AdvReac Type Severity Reaction Status Date / Time
No Known Allergies Allergy Verified 08/08/25 12:56
Home Medications
�Medication �Instructions �Recorded �Confirmed �Last Taken �Type
atorvastatin 40 mg tablet (Lipitor) 40 mg PO DAILY High Cholesterol 08/08/25 08/14/25 08/14/25 History
empagliflozin 25 mg tablet 25 mg PO DAILY Diabetes 08/08/25 08/14/25 08/14/25 History
(Jardiance)
fluoxetine 40 mg capsule 40 mg PO DAILY depression/anxiety 08/08/25 08/14/25 08/14/25 History
glipizide 10 mg tablet 10 mg PO DAILY Diabetes 08/08/25 08/14/25 08/14/25 History
lisinopril 40 mg tablet 40 mg PO DAILY Blood Pressure 08/08/25 08/14/25 08/14/25 History
doxycycline hyclate 100 mg capsule 100 mg PO Q12 Infection #14 caps 08/09/25 08/14/25 08/14/25 Rx
cholecalciferol (vitamin D3) 50 50 mcg PO DAILY Supplement 08/14/25 08/14/25 08/14/25 History
mcg (2,000 unit) capsule (Vitamin
D3)
Review of Systems
-
History Source: Patient
All other systems: Negative unless noted
Vitals / Labs / Diagnostic Testing
Vital Signs
Temp Pulse Resp BP Pulse Ox
98.1 F 82 17 146/67 99
08/15/25 07:00 08/15/25 08:40 08/15/25 07:00 08/15/25 08:40 08/15/25 09:46
Lab Data
08/14/25 15:28
08/14/25 15:28
Diagnostic Testing:
Physical Exam
-
HEENT: Normocephalic, Anicteric and Moist Mucous Membranes
Cardiovascular: S1/S2 and Regular Rhythm
Respiratory: Clear and Non-Labored Respirations
GI: Soft, Non Distended and Non Tender
Neurology: Awake, Alert, Oriented and No Motor Deficits
Skin: Warm, Dry and Good Color
General: Comfortable and Other (NAD)
Assessment
-
Patient is a 74-year-old female with past medical history significant for NIDDM, hypertension, hyperlipidemia, anxiety and peripheral artery disease who presented to [facility] ED for evaluation of worsening shortness of breath. Patient and spouse at
bedside assisted with HPI. Patient with recent hospitalization 08/08/2025-08/10/[address] showed that, she has numerous medium sized, round, solid, noncalcified bilateral pulmonary nodules, suggestive of metastatic disease, inflammation or
infection unlikely but possible. She had signed out AMA prior to completed work up and presents again for admission on 08/14/25. states that she had stopped her medications for two days and went 'apoplectic' demanding him to call 911. She
is crying on my interview regarding staying inpatient this time for work up. We are consulted for evaluation.
Dyspnea on exertion
Abnormal CT scan
Conditions present prior to admission
Hypercholesterolemia
HTN
NIDDM
PAD
Anxiety/depression
Plan
Currently saturating >90% on RA
No history of prior need for O2 use at home
Prior history of lung disease is NOT noted--never diagnosed with previous history
Not a formal smoker, trivial use in HS
Denies family history of lung disease
Denies associated cough, wheezing, chest tightness
CXR/CT obtained indicating small micronodular disease but not likely contributing greatly to her description of complaints
Repeat unchanged from prior
She denies any productive sputum history, etc
Prior ECHO results are reviewed indicating normal function
Not likely HF related
Trivial smoking, exposure history
Can perform bedside spirometry while inpatient to evaluate complaints
She has stopped her medications per and went 'apoplectic'
She has history of anxiety/depression
She had burst into tears on my conversation with her
Panic disorder could be a factor, may consider Psych eval if w/u negative
Will need outpatient pulmonary evaluation in our office for PFTs and 6MWT--if w/u negative
Reviewed with patient/ that we can continue further management as OP
We will follow
Diagnostic Data
Chest X-Ray: 08/14/25- No acute cardiopulmonary process. Scattered diffuse bilateral faint pulmonary nodules, as seen on recent CT examination.
CT Scan: 08/08/25- Numerous bilateral small pulmonary nodules suggestive of metastatic disease. Clinical and laboratory correlation recommended. Inflammation/infection unlikely.
Echo: 08/09/25- 1. Ejection fraction is 60-65% by visual assessment. No regional wall motion abnormalities. The Myers EPIQ left ventricular global longitudinal strain is -20.4%.
2. Right ventricular size and systolic function are within normal limits.
3. Aortic valve sclerosis of multiple aortic cusps; but no aortic stenosis.
4. There are no prior studies available for comparison.
PFT's:
Reports and relevant images were personally reviewed.
Total time spent on this consultation __55__ minutes which includes review of history, physical exam, medications, laboratory data, personal review of imaging, extensive review of outpatient records, discussion with care team and respiratory
therapy.
--- NOTE | 2025-08-15 11:25 | W.PN.HOSP.TC ---
Today's Communication/Plan
-
follow up pulmonary recommendations regarding widespread pulmonary nodules
Assessment / Plan
Assessment / Plan
Chest CT 08/08/25
IMPRESSION:
Numerous bilateral small pulmonary nodules suggestive of metastatic disease. Clinical and laboratory correlation recommended. Inflammation/infection unlikely.
If the patient has emphysema, patient should be assessed for an annual low dose lung cancer CT program, as pulmonary emphysema is an independent risk factor for lung cancer.
Abdomen/Pelvis CT
IMPRESSION: Numerous small pulmonary nodules within the visualized lower chest. These nodules raise concern for metastatic disease. However, they could also represent diffuse bilateral infectious nodules. Inflammatory nodules would seem less likely.
Coronary artery calcifications are noted. Please correlate with symptoms of and risk factors for coronary artery disease, with further workup as clinically appropriate.
Subtle layer of increased density within the dependent portion of the gallbladder, which could represent a small layer of noncalcified stones, but could also represent subtle sludge or complex bile. There are no findings to suggest acute
cholecystitis.
Vascular calcification with no aortic aneurysm.
Bony degenerative changes as described. No CT evidence for bony metastatic disease.
#worsening dyspnea
worsening shortness of breath, recent hospitalization 08/08/25/-08/10/25 and left AMA before workup completed, Chest CT showed that, she has numerous medium sized, round, solid, noncalcified bilateral pulmonary nodules,
suggestive of metastatic disease, inflammation or infection unlikely but possible.
labs unremarkable
- Admit to med/surg
- Consult Pulmonary
#NIDDM
last A1c 7.5 (08/08/2025)
- AccuCheck AC & HS
- SSI
- continue Jardiance and glipizide
#hypertension
- continue lisinopril
#hyperlipidemia
- continue atorvastatin
#anxiety
- continue fluoxetine
#peripheral artery disease
Code status: full code
DVT prophylaxis: Lovenox sq
Anticipated Discharge: 24 - 48 hours
Subjective/Interval History
-
Date of Service: August 15, 2025
short of breath with exertion to bathroom; able to recover with rest
not short of breath at rest
no fevers/chills
no significant mucus production
Objective Data
-
Vital Signs:
Vital Signs
Temp Pulse Resp BP Pulse Ox
98.1 F 82 17 146/67 99
08/15/25 07:00 08/15/25 08:40 08/15/25 07:00 08/15/25 08:40 08/15/25 09:46
I&O
08/14/25 08/15/25 08/16/25
06:59 06:59 06:59
Intake Total 480 / 480
Balance 480 / 480
Review of Systems
-
History Source: Patient
All other systems: Reviewed and negative
Physical Exam
-
General: No Apparent Distress
HEENT: PERRLA
Respiratory: Negative Wheezes or Rales
Cardiac: Regular Rhythm and S1/S2
GI: Soft and Nontender
Musculoskeletal: No Edema
Skin: Warm and Dry; Negative Rash
Neuro: AO x 3
Psych: Calm
Data Reviewed
-
Diagnostic Radiology: Report Reviewed by me
Labs: Labs Reviewed by me
[2025-08-15 12:13] LABS: Glucose - Point of Care 140 mg/dl (70-99)
[2025-08-15 15:00] VITALS: BP 142/68
[2025-08-15 16:45] LABS: Glucose - Point of Care 88 mg/dl (70-99)
[2025-08-15] MEDS: FLOVENT 110 MCG INHALER 2 PUFF INH (19:55)
[2025-08-15 22:25] LABS: Glucose - Point of Care 134 mg/dl (70-99)
[2025-08-15 23:00] VITALS: BP 133/75
[2025-08-16] MEDS: FLOVENT 110 MCG INHALER 2 PUFF INH (07:42)
[2025-08-16 07:44] VITALS: BP 142/70
[2025-08-16] MEDS: VITAMIN D3 (cholecalciferol) 50 MCG PO (07:50)
[2025-08-16] MEDS: PROZAC 40 MG PO (07:50)
[2025-08-16] MEDS: FARXIGA 10 MG PO (07:50)
[2025-08-16] MEDS: LIPITOR 40 MG PO (07:50)
[2025-08-16] MEDS: ZESTRIL 40 MG PO (07:50)
[2025-08-16] MEDS: GLUCOTROL 10 MG PO (07:50)
[2025-08-16 07:53] LABS: Glucose - Point of Care 123 mg/dl (70-99)
--- NOTE | 2025-08-16 09:41 | W.PN.PUL3 ---
Today's Communication / Plan
-
Mild asthma noted on PFT, started on inhalers to be continued as OP
Further w/u as OP for chest imaging
Home O2 eval
Discharge planning per team
Assessment
-
Patient is a 74-year-old female with past medical history significant for NIDDM, hypertension, hyperlipidemia, anxiety and peripheral artery disease who presented to [facility] ED for evaluation of worsening shortness of breath. Patient and spouse at
bedside assisted with HPI. Patient with recent hospitalization 08/08/2025-08/10/[address] showed that, she has numerous medium sized, round, solid, noncalcified bilateral pulmonary nodules, suggestive of metastatic disease, inflammation or
infection unlikely but possible. She had signed out AMA prior to completed work up and presents again for admission on 08/14/25. states that she had stopped her medications for two days and went 'apoplectic' demanding him to call 911. She
is crying on my interview regarding staying inpatient this time for work up. We are consulted for evaluation.
Dyspnea on exertion
Abnormal CT scan
Mild persistent asthma
Conditions present prior to admission
Hypercholesterolemia
HTN
NIDDM
PAD
Anxiety/depression
Plan
Currently saturating >90% on RA
No history of prior need for O2 use at home
Prior history of lung disease is NOT noted--never diagnosed with previous history
Not a formal smoker, trivial use in HS
Denies family history of lung disease
Denies associated cough, wheezing, chest tightness
CXR/CT obtained indicating small micronodular disease but not likely contributing greatly to her description of complaints
Repeat unchanged from prior
She denies any productive sputum history, etc
Prior ECHO results are reviewed indicating normal function
Not likely HF related
Trivial smoking, exposure history
Can perform bedside spirometry while inpatient to evaluate complaints--showing mild obstruction
Will initiate treatment for mild asthma, continue at home
She has stopped her medications per and went 'apoplectic'
She has history of anxiety/depression
She had burst into tears on my conversation with her
Panic disorder could be a factor, may consider Psych eval if w/u negative
Will need outpatient pulmonary evaluation in our office for PFTs and 6MWT--if w/u negative
Reviewed with patient/ that we can continue further management as OP
Discharge planning per team
Diagnostic Data
Chest X-Ray: 08/14/25- No acute cardiopulmonary process. Scattered diffuse bilateral faint pulmonary nodules, as seen on recent CT examination.
CT Scan: 08/08/25- Numerous bilateral small pulmonary nodules suggestive of metastatic disease. Clinical and laboratory correlation recommended. Inflammation/infection unlikely.
Echo: 08/09/25- 1. Ejection fraction is 60-65% by visual assessment. No regional wall motion abnormalities. The Myers EPIQ left ventricular global longitudinal strain is -20.4%.
2. Right ventricular size and systolic function are within normal limits.
3. Aortic valve sclerosis of multiple aortic cusps; but no aortic stenosis.
4. There are no prior studies available for comparison.
PFT's:
Reports and relevant images were personally reviewed.
Total time spent on this consultation __40__ minutes which includes review of history, physical exam, medications, laboratory data, personal review of imaging, extensive review of outpatient records, discussion with care team and respiratory
therapy.
Subjective Data
-
Date of Service:
Date of Service: August 16, 2025
Chief Complaint: Pulmonary Follow Up
Subjective:
Doing well today, no further complaints of SOB
Remains stable on RA, ambulated without issues
Objective Data
Data Reviewed
Vital Signs / I&O / Oxygen:
Vital Signs
Temp Pulse Resp BP Pulse Ox
98.2 F 73 16 142/70 98
08/16/25 07:44 08/16/25 07:50 08/16/25 07:44 08/16/25 07:50 08/16/25 09:21
Intake and Output
08/15/25 08/16/25 08/17/25
06:59 06:59 06:59
Intake Total 480 / 480 1200 / 1200
Balance 480 / 480 1200 / 1200
SaO2 98
Physical Exam
General: Comfortable and Other (NAD)
HEENT: Normocephalic, Anicteric and Moist Mucous Membranes
Cardiovascular: S1-S2 and Regular Rhythm
Respiratory: Clear and Non-Labored Respirations
GI: Soft, Non Distended and Non Tender
Neurology: Awake, Alert, Oriented and No Motor Deficits
Skin: Warm, Dry and Good Color
Labs/Micro/Reports
Lab Data
08/14/25 15:28
08/14/25 15:28
--- NOTE | 2025-08-16 09:56 | W.PN.HOSP.TC ---
Today's Communication/Plan
-
Ok for DC today after walks with RN
Assessment / Plan
Assessment / Plan
Chest CT 08/08/25
IMPRESSION:
Numerous bilateral small pulmonary nodules suggestive of metastatic disease. Clinical and laboratory correlation recommended. Inflammation/infection unlikely.
If the patient has emphysema, patient should be assessed for an annual low dose lung cancer CT program, as pulmonary emphysema is an independent risk factor for lung cancer.
Abdomen/Pelvis CT
IMPRESSION: Numerous small pulmonary nodules within the visualized lower chest. These nodules raise concern for metastatic disease. However, they could also represent diffuse bilateral infectious nodules. Inflammatory nodules would seem less likely.
Coronary artery calcifications are noted. Please correlate with symptoms of and risk factors for coronary artery disease, with further workup as clinically appropriate.
Subtle layer of increased density within the dependent portion of the gallbladder, which could represent a small layer of noncalcified stones, but could also represent subtle sludge or complex bile. There are no findings to suggest acute
cholecystitis.
Vascular calcification with no aortic aneurysm.
Bony degenerative changes as described. No CT evidence for bony metastatic disease.
shortness of breath
- Chest CT showed that, she has numerous medium sized, round, solid, noncalcified bilateral pulmonary nodules,
suggestive of metastatic disease, inflammation or infection unlikely but possible.
-appreciate Pulm input, would not explain shortness of breath
-mild reactive air disease noted on PFT's - inhalers started
-per further discussions with patient, she believes she feels very anxious during these episodes. Patient was recently diagnosed with Alzheimer's and was started on Rexulti to help anxiety in patients with Alzheimer's - her neurologist told her to
increase the dose and she plans to when she goes home
Mild Asthma
-DC on new inhalers
Numerous pulmonary nodules - outpatient PUlmonary follow up
#NIDDM
last A1c 7.5 (08/08/2025)
- AccuCheck AC & HS
- SSI
- continue Jardiance and glipizide
#hypertension
- continue lisinopril
#hyperlipidemia
- continue atorvastatin
#anxiety
- continue fluoxetine
#peripheral artery disease
Code status: full code
DVT prophylaxis: Lovenox sq
Anticipated Discharge: Today
Subjective/Interval History
-
Date of Service: August 16, 2025
was able to get ready in the bathroom this morning without symptoms
reporting that she believes her breathing issues are anxiety related
Objective Data
-
Vital Signs:
Vital Signs
Temp Pulse Resp BP Pulse Ox
98.2 F 73 16 142/70 98
08/16/25 07:44 08/16/25 07:50 08/16/25 07:44 08/16/25 07:50 08/16/25 09:21
I&O
08/15/25 08/16/25 08/17/25
06:59 06:59 06:59
Intake Total 480 / 480 1200 / 1200
Balance 480 / 480 1200 / 1200
Review of Systems
-
History Source: Patient
All other systems: Reviewed and negative
Physical Exam
-
General: No Apparent Distress
HEENT: PERRLA
Respiratory: Negative Wheezes
Cardiac: Regular Rhythm and S1/S2
GI: Soft and Nontender
Musculoskeletal: No Edema
Skin: Warm and Dry; Negative Rash
Neuro: AO x 3
Psych: Calm
Data Reviewed
-
Diagnostic Radiology: Report Reviewed by me
Labs: Labs Reviewed by me
--- NOTE | 2025-08-16 10:35 | W.DS.TRANS ---
DC Summary - Training Program Manager
-
Discharge Instructions:
Discharge Diagnosis/Procedures shortness of breath, new diagnosis mild asthma,
anxiety
Diet Regular
Activity As tolerated
Driving Restrictions As prior to admission
Instructions:
Stand-Alone Forms:
Changes to Home Medications: Yes
Discharge Medications:
DC Medications w/original date entered in [employer]
atorvastatin 40 mg tablet (Lipitor) 40 mg PO DAILY High Cholesterol 08/08/25
empagliflozin 25 mg tablet (Jardiance) 25 mg PO DAILY Diabetes 08/08/25
fluoxetine 40 mg capsule 40 mg PO DAILY depression/anxiety 08/08/25
glipizide 10 mg tablet 10 mg PO DAILY Diabetes 08/08/25
lisinopril 40 mg tablet 40 mg PO DAILY Blood Pressure 08/08/25
cholecalciferol (vitamin D3) 50 mcg (2,000 unit) capsule (Vitamin D3) 50 mcg PO DAILY Supplement 08/14/25
albuterol sulfate 90 mcg/actuation aerosol inhaler 2 puff inhalation R Q4HPRN PRN SOB/wheezing #6.7 grams 08/16/25
fluticasone propionate 110 mcg/actuation HFA aerosol inhaler 2 puff inhalation R BID #12 grams 08/16/25
Home Medication Changes
You are started on Fluticasone 2 puffs twice a day
Take albuterol inhaler as needed
Ok to stop Doxycycline
Pending Results: No
[2025-08-16 11:11] VITALS: BP 105/62
--- NOTE | 2025-08-16 12:20 | CM ---
Alert awake oriented patient who lives with Jim in a bilevel home with 1 step to enter and 2 stair glides[address] She does not drive .She is independent. She has a walker an cane but does not use CPAP.[place] explained to patient she signed stating
understanding.
She has not had VN/SNF hx.
Pharmacy [facility]
PCP DR Bee
PLAN Offered VN she declined need. Home no needs.
--- NOTE | 2025-08-16 14:20 | W.DCSUMMARY ---
Discharge Summary
Discharge Data
Date of Admission: 08/14/25
Date of Discharge: 08/16/25
-
Pending Results: No
Hospital Course
Discharging Physician : Dr. Jesika Valdovinos
Disposition : Home
Primary care physician : Dr. Roberto Bee
Principal Discharge diagnosis : Mild Asthma, Anxiety resulting in shortness of breath
Hospital Course :
Ms. Aspen Sevilla is a 74 yo woman with hx NIDDM, essential HTN, HLD, anxiety, recent diagnosis early Alzheimer's disease, PAD, recent admission 08/08-08/10/25 for shortness of breath with work-up showing numerous bilateral pulmonary nodules
concerning for metastatic disease (left AMA) represents to the ER with shortness of breath on exertion.
Triage vitals stable. She was admitted to medicine with Pulmonary consulting. Per Pulmonary, CT findings would not explain symptoms. PFT's performed which showed mild reactive airway disease and she is started on inhalers. Per further
conversations with patient, and witnessing her tearful state it became more clear to patient that these episodes were related to anxiety. She is being seen by a Neurologist as outpatient who recently started Rexulti and recommended a dosage
increase. Patient plans to start taking this and follow up closely as outpatient. She also sees a psychologist.
Patient ambulated the hallway without shortness of breath or need for O2 at time of discharge.
She is discharged home with prescription for new inhalers. She will follow up with her PCP, Pulmonary (for further work up of pulmonary nodules), Psychologist and Neurologist.
Time spent on discharge was 31 minutes.
Important imaging findings :
CXR 08/14/25
IMPRESSION:
No acute cardiopulmonary process.
Scattered diffuse bilateral faint pulmonary nodules, as seen on recent CT examination.
Procedure findings :
Discharge Plan
-
Patient Disposition: Home (Routine Discharge)
Discharge Diagnosis/Procedures: shortness of breath, new diagnosis mild asthma, anxiety
Diet: Regular
Activity: As tolerated
Driving Restrictions: As prior to admission
Referrals:
Aden Ricardo MD [Active, Pulmonary Medicine] - in one to two weeks
Roberto Bee MD [Family Provider, Family Practice] - in less than 1 week
Additional Discharge Medication Instructions: You are started on Fluticasone 2 puffs twice a day
Take albuterol inhaler as needed
Ok to stop Doxycycline
Prescriptions:
New
fluticasone propionate 110 mcg/actuation Hfa Aerosol Inhaler
2 puff inhalation R BID Qty: 12 0RF
albuterol sulfate 90 mcg/actuation Hfa Aerosol Inhaler
2 puff inhalation R Q4HPRN PRN (Reason: SOB/wheezing) Qty: 6.7 0RF
Continued
atorvastatin [Lipitor] 40 mg Tablet
40 mg PO DAILY
fluoxetine 40 mg Capsule
40 mg PO DAILY
glipizide 10 mg Tablet
10 mg PO DAILY
lisinopril 40 mg Tablet
40 mg PO DAILY
Jardiance 25 mg Tablet
25 mg PO DAILY
cholecalciferol (vitamin D3) [Vitamin D3] 50 mcg (2,000 unit) Capsule
50 mcg PO DAILY
Discontinued
doxycycline hyclate 100 mg Capsule
100 mg PO Q12 Qty: 14 0RF
Rx Instructions:
for 7 days starting 08/09/25
Discharge Orders:
Discharge Patient (As Directed); Ordered 08/16/25
Ordered By: Jesika Valdovinos
Discharge Date and Time
Discharge Date/Time: 08/16/25 11:59
Print Language: BANGLADESHI
== END 2025-08-16 11:59 | disposition home or self-care (01) ==
LOC: 3 WEST ACU 20:39
PROVIDERS: Nurse Practitioner Family; Physician Assistant; ADMITTING PHYSICIAN Internal Medicine; ATTENDING PHYSICIAN Student in an Organized Health Care Education/Training Program; EMERGENCY PHYSICIAN Student in an Organized Health Care Education/Training Program; FAMILY PHYSICIAN Family Medicine; OTHER PHYSICIAN Internal Medicine
DX: R06.02 Shortness of breath (principal); J45.30 Mild persistent asthma, uncomplicated; G30.9 Alzheimer's disease, unspecified; F02.84 Dementia in other diseases classified elsewhere, unspecified severity, with anxiety; F02.83 Dementia in other diseases classified elsewhere, unspecified severity, with mood disturbance; R53.83 Other fatigue; R91.8 Other nonspecific abnormal finding of lung field; R63.4 Abnormal weight loss; E78.00 Pure hypercholesterolemia, unspecified; E11.51 Type 2 diabetes mellitus with diabetic peripheral angiopathy without gangrene; R06.09 Other forms of dyspnea; I10 Essential (primary) hypertension; D47.2 Monoclonal gammopathy; F32.A Depression, unspecified; R94.31 Abnormal electrocardiogram [ECG] [EKG]; I25.10 Atherosclerotic heart disease of native coronary artery without angina pectoris; Z80.1 Family history of malignant neoplasm of trachea, bronchus and lung; Z80.0 Family history of malignant neoplasm of digestive organs; Z82.49 Family history of ischemic heart disease and other diseases of the circulatory system; Z80.3 Family history of malignant neoplasm of breast; Z79.899 Other long term (current) drug therapy; Z79.84 Long term (current) use of oral hypoglycemic drugs
CPT/HCPCS: 71046; 80053; 82962; 83880; 84145; 84484; 85025; 93005; 94010; 94640; 99285; G0378

== ENCOUNTER 2025-08-19 17:53 | Emergency (ER) | payer MEDICARE, OTHER, SELFPAY ==
[2025-08-19 17:58] VITALS: BP 141/83
[2025-08-19 18:20] LABS: Hematocrit 39.3 % (37.0-47.0); Hemoglobin 13.3 g/dL (12.0-16.0); Mean Corp Hgb Conc. 33.8 g/dL (33.0-37.0); Mean Corpuscular Volume 88.9 fL (81.0-99.0); Nucleated Red Blood Cells % 0 %; Platelet Count 263 10^3/uL (130-400); Red Cell Dist. Width 12.4 % (11.5-14.5)
[2025-08-19 18:46] LABS: ALT (SGPT) 25 U/L (0-35); AST (SGOT) 28 U/L (14-36); Albumin 4.4 g/dl (3.5-5.0); Alkaline Phosphatase 86 U/L (38-126); Blood Urea Nitrogen 23 mg/dl (7-17); Calcium 9.6 mg/dl (8.4-10.2); Carbon Dioxide 23 mmol/L (22-30); Chloride 105 mmol/L (98-107); Glucose 136 mg/dl (70-99); Potassium 4.5 mmol/L (3.5-5.1); Sodium 135 mmol/L (135-145); Total Protein 7.3 g/dl (6.3-8.2); eGFR > 60.00
[2025-08-19 19:43] VITALS: BMI 25.0
--- NOTE | 2025-08-19 20:21 | ED.GENMED ---
History of Present Illness
General
Chief Complaint: Breathing Problem
Source: patient, records and spouse
Exam Limitations: none
Time Seen by Provider: 08/19/25 19:56
Nursing documentation reviewed up to this point in time: agreed with
History of Present Illness
History of Present Illness:
Note:
CHIEF COMPLAINT(S)
Weakness, difficulty walking, recent fall in the bathroom.
HISTORY OF PRESENT ILLNESS
The patient is a 74-year-old female who presents to the emergency department with complaints of generalized weakness and difficulty ambulating. She describes a fall in her bathroom, where she landed on her buttocks. Despite not hitting her head, she
feels weaker than usual. She reports that her legs feel weak to the point where she is unable to stand, get out of bed, or walk effectively. She was previously discharged from the emergency department but has returned as she perceives a decline in
her ability to get around at home over the past few days. The patient denies any trauma to the head but acknowledges balance issues. She has difficulty maintaining endurance for everyday activities without getting out of breath. The patient has been
utilizing steroids at home, but symptoms have continued to progress. Upon physical examination during the visit, neuromuscular responses were noted, and her cognitive orientation was intact.
PHYSICAL EXAM
General: Alert, no acute distress.
Skin: Warm, dry.
Head: Normocephalic, atraumatic.
Neck: Supple, trachea midline.
Eye Ears, nose, mouth and throat: Oral mucosa moist.
Cardiovascular: Normal peripheral perfusion, No edema.
Respiratory: Respirations are non-labored.
Gastrointestinal: Abdomen nondistended.
Back: Normal range of motion, Normal alignment.
Musculoskeletal: Normal range of motion, normal strength, no neurologic deficits.
Neurological: Alert and oriented to person, place, time, and situation, No focal neurological deficit observed.
Psychiatric: Cooperative, appropriate mood & affect.
PROBLEM LIST
Acute Problems:
- Generalized weakness
- Fall without head injury
- Difficulty ambulating
PLAN
The plan is to obtain a CT scan of the patients head to rule out any injury from the fall, particularly given her significant weakness and difficulty with balance. Additionally, she will be monitored in the emergency department with blood pressure
checks and heart monitoring to ensure no further decline. The decision to impel further interventions or a potential admission will be considered based on the CT findings and ongoing clinical assessment.
DIFFERENTIAL DIAGNOSIS
The Differential Diagnosis includes, in no particular order and is not limited to:
- Cerebrovascular accident
- Deconditioning or muscle weakness secondary to steroid use
- Peripheral neuropathy
- Myasthenia gravis
- Hypocalcemia or other electrolyte disturbances
- Medication side effects
- Parkinson�s disease
- Orthostatic hypotension
- Chronic obstructive pulmonary disease with decompensation
- Osteoarthritis with limited mobility
CARE-UPDATE
08/19/25 - 23:18
Patient reports experiencing shortness of breath. Physical examination remains normal. Anxiety is suspected as the cause of the shortness of breath. There is a differential diagnosis considering pulmonary embolism (PE), heart failure exacerbation,
or pneumonia, but the patient is deemed stable for discharge. Plan to monitor symptoms and advise follow-up if shortness of breath persists or worsens.
Disposition:
SUMMARY OF ENCOUNTER
The patient, a 74-year-old female, presented to the emergency department with complaints of generalized weakness and difficulty walking after a recent fall in the bathroom. She denied hitting her head. On assessment, her physical exam was mostly
normal, with no acute distress or signs of head trauma. A CT scan of the head was performed to rule out intracranial injury due to her recent fall and persistent weakness. She also reported shortness of breath; however, examination suggested anxiety
as the likely cause. Differential diagnoses included cerebrovascular accident and deconditioning from steroid use, among others.
DISPOSITION
The patient is stable for discharge.
ASSESSMENT
The primary diagnosis is anxiety. The fall occurred without any head injury, and there is no indication of pneumonia, exacerbated congestive heart failure, or chronic obstructive pulmonary disease. The fall suggests potential underlying balance
issues.
PLAN
The plan is to discharge the patient with resources to manage anxiety and advice to follow up if shortness of breath persists or worsens. Further studies or interventions will depend on the evolution of her symptoms and any new findings.
INDEPENDENT REVIEW OF LABS AND INTERPRETATION OF TESTS
- My independent interpretation of the CT scan of the head shows no signs of intracranial hemorrhage or other injuries.
PATIENT EDUCATION AND COUNSELING
The patient was provided with resources related to managing anxiety and advised about the importance of seeking follow-up care if symptoms such as shortness of breath or weakness do not improve or worsen.
FOLLOW-UP INSTRUCTIONS
The patient should follow up with her primary care physician. She was advised to call the office immediately to schedule a follow-up visit.
MEDICAL DECISION MAKING
-Complexity of Data Reviewed: Chronic conditions affecting care include anxiety, balance issues related to the recent fall.
-Data:
Category 1: CT scan of the head was ordered and independently interpreted, revealing no acute injuries.
-Risk: Consideration of Admission/Observation: Escalation of care including admission/observation was considered given the complexity and risk of the patients presenting complaint, exam findings, and/or their underlying comorbidities. However,
ultimately I feel the patient is safe for outpatient management with close follow up. Reasoning: Work-up reassuring, does not reveal any acute life/organ threatening processes, patients symptoms well controlled upon reevaluation, reexamination is
reassuring, vitals are stable, patient agreeable with discharge, reliable for follow-up.
DIAGNOSIS
Generalized anxiety disorder - ICD-10 Code F41.1; Fall - ICD-10 Code W19.9; Weakness - ICD-10 Code R53.1.
Past History
Past History
ED Past Medical History: Hypercholesterolemia and NIDDM
ED Past Surgical History: None
Social History
Tobacco: Non-smoker
Phy Exam
Physical Exam
Physical Exam:
.
Scores
Heart Failure Risk
Heart Failure Risk Score: Not Applicable
Course
Orders/Labs/Results
Orders:
Orders
08/19/25 18:04
Electrocardiogram (*1) Urgent
Reason for Study: Other
Other Reason for Exam: Respiratory Distress
EKG- Treatment ONCE
08/19/25 18:14
Complete Blood Count/With Diff Urgent
Comprehensive Metabolic Panel Urgent
08/19/25 20:21
CT Head W/o Iv Contrast Urgent
Comment:
Reason For Exam: fall, weakness
08/19/25 20:32
Crisis Consult Urgent
Reason for Consult: depression, anxiety
Abnormal Lab Results
08/19/25
18:14
Absolute Monos (auto) 0.9 H 10^3/uL
(0.1-0.6)
Monocytes % 10.7 H %
(1.7-9.3)
BUN 23 H mg/dl
(7-17)
Glucose 136 H mg/dl
(70-99)
08/19/25 18:14
08/19/25 18:14
Vital Signs
Initial and Last Documented VS:
Initial Vital Signs
Temp Pulse Resp BP Pulse Ox
98.2 F 94 18 141/83 95
08/19/25 17:58 08/19/25 17:58 08/19/25 17:58 08/19/25 17:58 08/19/25 17:58
Last Documented Vital Signs
Temp Pulse Resp BP Pulse Ox
98.2 F 94 18 141/83 96
08/19/25 17:58 08/19/25 17:58 08/19/25 17:58 08/19/25 17:58 08/19/25 23:10
*Pulse Oximetry
SaO2: 95
Oxygen Mode of Delivery: Room air
Patient hypoxic: no
*Critical Care Note
Total Time (30-74mins, 75-104mins- exclusive of procedures): Not Applicable
ED Attending Note
-
Portions of this chart may have been created with voice recognition software.� Occasional wrong word or��sound alike� substitutions may have occurred due to the inherent limitations of voice recognition software.
Discharge Plan
Departure
Patient Disposition: Home (Routine Discharge)
Date of Disposition: 08/19/25
Time of Disposition: 22:39
Patient with high blood pressure during this ER visit?: Yes
Condition: Good
Discharge Problem:
Fall, DEL RIO (dyspnea on exertion), Anxiety
Instructions: Shortness of Breath (Dyspnea) (DC), Preventing falls in adults, Anxiety in adults - ED (DC), BLOOD PRESSURE
Prescriptions:
No Action
atorvastatin [Lipitor] 40 mg Tablet
40 mg PO DAILY
fluoxetine 40 mg Capsule
40 mg PO DAILY
glipizide 10 mg Tablet
10 mg PO DAILY
lisinopril 40 mg Tablet
40 mg PO DAILY
Jardiance 25 mg Tablet
25 mg PO DAILY
cholecalciferol (vitamin D3) [Vitamin D3] 50 mcg (2,000 unit) Capsule
50 mcg PO DAILY
fluticasone propionate 110 mcg/actuation Hfa Aerosol Inhaler
2 puff inhalation R BID Qty: 12 0RF
albuterol sulfate 90 mcg/actuation Hfa Aerosol Inhaler
2 puff inhalation R Q4HPRN PRN (Reason: SOB/wheezing) Qty: 6.7 0RF
Referrals:
Roberto Bee MD [Family Provider, Family Practice] - Call in 1-3 days for appt
Interventions
Interventions:
*Risk Screen - Suicide Last Done: 08/19/25 17:58
*General Assessment Last Done: 08/19/25 19:44
*Neglect/Abuse Screening Last Done: 08/19/25 17:58
*ED- Fall Risk Assessment Last Done: 08/19/25 19:45
*ED COVID-19 Vaccine History Last Done: 08/19/25 19:44
*ED Influenza Vaccine History Last Done: 08/19/25 19:44
*Nursing Disposition Last Done: 08/19/25 23:11
ED- Cardiac Assessment Last Done: 08/19/25 23:10
ED- Pulmonary Assessment Last Done: 08/19/25 23:10
Discharge Date and Time
Discharge Date/Time: 08/19/25 23:12
Print Language: MAORI
== END 2025-08-19 23:12 | disposition home or self-care (01) ==
LOC: EMR 17:53
PROVIDERS: Emergency Medicine; EMERGENCY PHYSICIAN Emergency Medicine; FAMILY PHYSICIAN Family Medicine
DX: F41.9 Anxiety disorder, unspecified (principal); R03.0 Elevated blood-pressure reading, without diagnosis of hypertension; E11.9 Type 2 diabetes mellitus without complications; E78.00 Pure hypercholesterolemia, unspecified; Z79.84 Long term (current) use of oral hypoglycemic drugs
CPT/HCPCS: 99284; 70450; 80053; 85025; 93005